=== PATIENT | female | born 1975 | race Caucasian/White ===

== ENCOUNTER → 2021-07-12 | Outpatient (CLI) | payer OTHER | LOC: KOH-I 12:30 | DX: M47.26 Other spondylosis with radiculopathy, lumbar region (principal); M54.2 Cervicalgia; M16.9 Osteoarthritis of hip, unspecified; M47.812 Spondylosis without myelopathy or radiculopathy, cervical region | CPT/HCPCS: 72040; 72110; 73522 ==